=== PATIENT | female | born 1990 | race Caucasian/White ===

== ENCOUNTER 2022-06-11 00:24 | Emergency (ER) | payer SELFPAY ==
[2022-06-11] MEDS ORDERED: Acetaminophen 500 MG TAB ONE (01:04)
[2022-06-11 01:26] LABS: Pregnancy Test - Urine (BHCG) Negative (Negative); Pregu Control Background? CLEAR/WHITE (CLR/WHITE); Pregu Control Bar Appear? YES (CONTROL BAR)
[2022-06-11] MEDS ORDERED: Ketorolac Tromethamine 30 MG/ML VIAL ONE (01:41)
== END 2022-06-11 02:40 | disposition home or self-care (01) ==
LOC: MADERS 00:24
DX: S06.0X0A Concussion without loss of consciousness, initial encounter (principal); S00.03XA Contusion of scalp, initial encounter; W22.8XXA Striking against or struck by other objects, initial encounter
CPT/HCPCS: 70450; 72125; 81025; 96372; J1885